=== PATIENT | female | born 1990 | race African-American/Black ===

== ENCOUNTER 2020-02-01 00:10 | Emergency (ER) | payer MEDICAID ==
[~2020-02-01] VITALS: Ht 160 cm; Wt 77.1 kg
[2020-02-01 03:37] VITALS: BP 105/70
== END 2020-02-01 04:18 | disposition home or self-care (01) ==
LOC: ER 00:10
DX: J02.8 Acute pharyngitis due to other specified organisms (principal); B97.89 Other viral agents as the cause of diseases classified elsewhere; F17.210 Nicotine dependence, cigarettes, uncomplicated
CPT/HCPCS: 87070; 87880